=== PATIENT | female | born 1965 | race African-American/Black ===

== ENCOUNTER 2023-08-12 14:24 | Emergency (ER) | payer BC, SELFPAY ==
[2023-08-12 14:27] VITALS: BP 129/92
--- NOTE | 2023-08-12 15:43 | ED.GENMED ---
History of Present Illness
General
Chief Complaint: Back Pain
Source: patient
Exam Limitations: none
Time Seen by Provider: 08/12/23 15:16
Travel History
Have you had any contact with someone who has COVID-19?: No
Do you have any symptoms of coronavirus? Fever > 100 degrees, chills, cough, shortness of breath, sore throat, loss of taste or smell, muscle aches, or headache?: No
History of Present Illness
History of Present Illness:
57-year-old female presents with worsening lower back pain over the past 2 weeks that radiates down the posterior right leg into the anterior lateral right lower leg. She notes numbness to her leg but denies any bowel or bladder dysfunction. She
denies fevers or perianal anesthesia. She is followed by [facility] for chronic back pain. She has been taking Medrol Dosepak, hydrocodone, Motrin and gabapentin without relief. She denies any injury. She has trouble walking
secondary to the pain in her leg. No other complaints at this time
Past History
Past History
ED Past Medical History: HTN
ED Past Surgical History: Gynecological (hysterectomy)
Social History
Tobacco: Smoker (1/2ppd)
Alcohol: None
Drug: None
Personal:
Living: with family
Employment: Employed
Family History
Family History: Other (n/c)
Phy Exam
Physical Exam
Physical Exam:
General: Uncomfortable appearing female no acute respiratory distress
HEENT: Normocephalic atraumatic
Heart: Regular rate and rhythm no murmurs
Lungs: Clear no wheeze or rales
Musculoskeletal exam: The patient is tender diffusely about the lumbar spine. Decreased range of motion lower extremities.
Neurologic: Alert and oriented. Bilateral patellar reflexes 1+. No clonus. Positive straight leg raise right lower extremity. Patient has good plantarflexion and dorsiflexion strength of both feet. Slightly decreased sensation to light touch to
the lower right leg compared to the left.
Skin is intact without rashes or lesions
Course
Orders/Labs/Results
Orders:
Orders
08/12/23 15:36
Dexamethasone Sod Phosphate [Decadron] 10 mg IV NOW STA
Ketorolac [Toradol] 15 mg IV NOW STA
diazePAM [Valium Injection] 5 mg IV NOW STA
CR Lumbar Spine 2 Or 3 Views Urgent
Comment:
Reason For Exam: back pain
08/12/23 17:25
diazePAM [Valium Injection] 2 mg IV NOW STA
Vital Signs
Initial and Last Documented VS:
Initial Vital Signs
Temp Pulse Resp BP Pulse Ox
98.2 F 92 20 129/92 96
08/12/23 14:27 08/12/23 14:27 08/12/23 14:27 08/12/23 14:27 08/12/23 14:27
Last Documented Vital Signs
Temp Pulse Resp BP Pulse Ox
98.2 F 87 19 137/89 96
08/12/23 14:27 08/12/23 15:53 08/12/23 15:53 08/12/23 15:53 08/12/23 15:53
MDM/Problems Addressed
Differential Diagnosis Includes:
Low back pain radiating down the right leg. Consider radiculopathy. No signs or symptoms consistent with cauda equina. No fever to infectious source. Patient has known degenerative changes in her back. She has had a laminectomy in the past and
is followed by pain management. This is a new pain that is unrelieved with her current medicine regimen. X-rays pending. Will try Valium Toradol and Decadron IV
*Critical Care Note
Total Time (30-74mins, 75-104mins- exclusive of procedures): Not Applicable
Update Note
Update Note:
X-rays show mild degenerative change but no other acute finding. Patient notes some improvement after medicine here. Will prescribe Lidoderm patch and muscle relaxer for at home. Will recommend she follow-up with her pain management doctor. If
pain persist she may need further imaging. No indication for emergent MRI at this time.
ED Attending Note
-
Portions of this chart may have been created with voice recognition software.� Occasional wrong word or��sound alike� substitutions may have occurred due to the inherent limitations of voice recognition software.
Discharge Plan
Departure
Patient Disposition: Home (Routine Discharge)
Date of Disposition: 08/12/23
Time of Disposition: 17:54
Patient with high blood pressure during this ER visit?: No
Discharge Problem:
Acute lumbar radiculopathy
Instructions: Radiculopathy (DC)
Prescriptions:
New
diazepam [Valium] 5 mg tablet
5 mg PO TID PRN (Reason: muscle spasm) Qty: 10 0RF
lidocaine [Lidoderm] 5 % adhesive patch,medicated
1 patch topical DAILY Qty: 15 0RF
No Action
losartan 50 MG tablet
50 mg PO BID
metoprolol succinate 50 MG tablet extended release 24 hr
50 mg PO DAILY
hydrocodone-acetaminophen 1 EACH tablet
0.5 - 1 tab PO TID
Patient Comments:
11/13/2020: last filled 10/23/20, 75 tabs for 30 days from [facility]
amlodipine 10 MG tablet
10 mg PO DAILY
gabapentin 100 MG capsule
100 mg PO BID
acetaminophen 325 MG tablet
500 mg PO Q6HPRN PRN (Reason: mild pain) 0RF
pantoprazole 40 MG tablet,delayed release (DR/EC)
40 mg PO DAILY Qty: 10 0RF
prednisone 10 MG tablet
10 mg PO .TAPER Qty: 20 0RF
Rx Instructions:
Take 40mg daily x2days, 30mg daily x2days,
20mg daily x2days, 10mg daily x2days.
metformin 500 MG tablet
500 mg PO BID Qty: 60 0RF
(DME) blood sugar diagnostic [Blood Glucose Test] 1 EACH strip
1 ea AC Qty: 100 0RF
(DME) lancets 1 EACH misc
1 ea AC Qty: 100 0RF
Referrals:
Leif Jackson MD [Family Provider] -
Activity Restrictions/Additional Instructions:
Use muscle relaxers as needed for spasm. Use Lidoderm patches. Please follow-up with your pain management doctor. You may need further imaging if symptoms persist. Return if needed otherwise.
Interventions
Interventions:
*Risk Screen - Suicide Last Done: 08/12/23 14:27
*General Assessment Last Done: 08/12/23 14:27
*Neglect/Abuse Screening Last Done: 08/12/23 14:27
ED- Fall Risk Assessment Last Done: 08/12/23 15:54
ED-Musculoskeletal Assessment Last Done: 08/12/23 15:54
Discharge Date and Time
Print Language: MALAYSIAN
[2023-08-12] MEDS: TORADOL 15 MG IV (15:46)
[2023-08-12] MEDS: DECADRON 10 MG IV (15:47)
[2023-08-12] MEDS: VALIUM INJECTION 5 MG IV (15:49)
[2023-08-12 15:53] VITALS: BP 137/89
[2023-08-12 15:55] VITALS: BMI 43.8
[2023-08-12] MEDS: VALIUM INJECTION 2 MG IV (17:36)
== END 2023-08-12 18:20 | disposition home or self-care (01) ==
LOC: EMR 14:24
PROVIDERS: EMERGENCY PHYSICIAN Student in an Organized Health Care Education/Training Program; FAMILY PHYSICIAN Family Medicine
DX: M54.16 Radiculopathy, lumbar region (principal); F17.210 Nicotine dependence, cigarettes, uncomplicated
CPT/HCPCS: 99284; 96374; 96375 ×2; 96376; 72100